=== PATIENT | male | born 1965 | race Caucasian/White ===

== ENCOUNTER 2019-08-15 19:28 | Emergency (ER) | payer SELFPAY ==
[~2019-08-15] VITALS: Ht 172.7 cm; Wt 73.0 kg
[2019-08-15] MEDS ORDERED: HYDROCODONE/ACETAMINOPHEN 5/325MG TABLET PO ONE (20:45)
[2019-08-15 22:10] VITALS: BP 134/69
== END 2019-08-15 22:11 | disposition home or self-care (01) ==
LOC: ER 19:28
DX: S43.101A Unspecified dislocation of right acromioclavicular joint, initial encounter (principal); M25.561 Pain in right knee; M25.551 Pain in right hip; M25.511 Pain in right shoulder; R03.0 Elevated blood-pressure reading, without diagnosis of hypertension; V49.40XA Driver injured in collision with unspecified motor vehicles in traffic accident, initial encounter; Y93.89 Activity, other specified; Y92.410 Unspecified street and highway as the place of occurrence of the external cause
CPT/HCPCS: 73030; 73130; 73502; 73560; 99283; A4565